=== PATIENT | female | born 1970 | race Caucasian/White ===

== ENCOUNTER → 2021-07-26 14:56 | Outpatient (BNVA) | payer OTHER, SELFPAY | PROVIDERS: PCP Internal Medicine; Visit Provider Hospitalist ==

== ENCOUNTER → 2021-09-14 08:23 | Outpatient (BNVA) | payer OTHER, SELFPAY | PROVIDERS: PCP Internal Medicine; Visit Provider Hospitalist | DX: J45.909 Unspecified asthma, uncomplicated (principal); R91.8 Other nonspecific abnormal finding of lung field ==

== ENCOUNTER → 2022-11-03 09:42 | Outpatient (BNVA) | payer OTHER, SELFPAY | PROVIDERS: PCP Internal Medicine; Visit Provider Hospitalist | DX: Z13.89 Encounter for screening for other disorder (principal) ==

== ENCOUNTER 2023-11-12 08:50 | Outpatient (REF) | payer OTHER, SELFPAY ==
[2023-11-12 10:25] VITALS: PULSE 82; RESP 14; O2SAT 98
--- NOTE | 2023-11-12 10:58 | PFT_ITS ---
Indication: Asthma Spirometry [FEV1 to FVC 76%; FEV1 3.07 L; FVC 4.03 L. no significant response to bronchodilators noted. Maximum voluntary ventilation 163% predicted] Lung Volumes [Total lung capacity 101% predicted] Diffusion Capacity [DLCO 115% predicted] Comparisons [None] Interpretation [No obstructive nor restrictive ventilatory defects identified. No significant response to bronchodilators noted. Normal maximum voluntary ventilation. Lung volumes and diffusing capacity also within normal limits. Clinical correlation warranted.] MTDD
== END 2023-11-12 08:51 | disposition home or self-care (01) ==
LOC: HO.RESP 08:50
PROVIDERS: PCP Internal Medicine; Visit Provider Hospitalist
DX: J45.50 Severe persistent asthma, uncomplicated (principal)
CPT/HCPCS: 94010; 94640; 94727; 94729

== ENCOUNTER 2023-11-12 09:59 | Outpatient (AMB) | payer OTHER, SELFPAY ==
[2023-11-12 10:29] VITALS: PULSE 82; O2SAT 99; BMI 23.3
--- NOTE | 2023-11-12 10:29 | A.OFFVIS_ITS ---
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 She states that for many years usually in the winter time she would develop a a bout of bronchitis with bronchospasms and wheezing. she would require a brief period of respiratory therapy. However the several months the patient has been developing worsening respiratory complaints with his shortness of breath in addition to chest tightness. She did follow-up with her primary care doctor who ordered pulmonary function studies and a chest x-ray. The patient also was placed on Symbicort which has helped decrease some of her respiratory complaints. The pars the chest x-ray I personally reviewed with the patient which was done in July 2021. demonstrating evidence of hyperinflation both with retrosternal air and also flattening of the diaphragms. We also did compare findings to an x-ray that she had back in 2018 which is very similar. In addition to that we did also review her pulmonary function studies. Her pre bronchodilator FEV1 to FVC was 71% and after bronchodilator it improved to 74%. Explained to her that she does not meet criteria for COPD based on the spirometry. But, it does demonstrate some degree of obstructive physiology. She does have some small airways disease it is likely that she has uncontrolled asthma. The patient has not had allergy testing. As far as exposures she denies any exposure to any farm work or mold. Denies any hobbies/work that have to do with any fumes or organic or inorganic dust. her significant other does work with painting however he is in a different shopping she is not exposed to the paint. She is a lifelong nonsmoker although she was exposed to secondhand smoke. 09/14/2021 the patient is here for a [facility] follow-up visit. The patient has been feeling better on the Trelegy inhaler. Not having to use her rescue inhaler more than twice a week. she had 1 bout of a upper respiratory illness. The patient did not require prednisone which is reassuring. We did review her laboratory results. Appears that she has significant allergies with elevated IgE level above 400. Significant seasonal allergies. Also mild allergy to mucor. She is also allergic to most grasses and trees. She has a lot of nature on her. Patient is also allergic to dust mites. We did talk about getting hyperlipidemia covers or foam mattress. The patient should also given a rugs. At this point the patient is doing better. I did recommend she follow up or get evaluated by Allergy in view of her significant allergies. She can also consider biologics in the future if specially her symptoms continue to be present on maximize respiratory therapy. Will focus on providing additional allergy therapy at this time with both leukotriene inhibitors and antihistamines. Will follow-up in 6 months. 04/04/2022 the patient is here for a pulmo nary follow-up visit. Overall she is doing very well. Continues on the Trelegy inhaler. Unfortunately, she has changed insurance companies and now is extremely expensive. Therefore, will go ahead and switch her to a generic combination inhaler, AirDuo. That should be a lot better harper was. I am not sure how she will do without the long-acting muscarinic antagonist. However, we can always add that to her regimen if ne eded. She does continue with allergy medicine. She stays active. She has not required any prednisone. She does use hearing he will err, albuterol, couple times a week. She continues to work regularly. Has not had any significant limitations. she does have significant allergies we spoke about before. I did give her copies of it. Patient may benefit from either allergy immunotherapy or biologic injections If her symptoms worsen or her asthma becomes uncontrolled. At this point I believe she is doing okay. 11/03/2022 the patient is here for a pulmonary follow-up visit. The patient continues to do well. She has been tolerating the AirDuo. It has been helping her and is much more cost effective. She also continues with Zyrtec and Singulair. the patient has not required her rescue inhaler. Therefore we can hold off from biologic therapies at this time. no recent imaging studies to review. The patient is to return in 1 years time with pulmonary function studies. 11/12/2023 the patient is here for a pulm onary follow-up visit. The patient overall is doing about the same. She still complains of dyspnea on exertion specially when she is exercising. She had been on AirDuo from many years. Although now she can not find it at the pharmacy. Therefore, switched over to [facility] that she has some samples and that was very affecting beneficial for her. However also significantly expensive for him to dollars a month. Therefore that has not financially feasible for her. She did find that Breo will be covered for her. Therefore I will go ahead and send a prescription for Breo. In the meantime the patient did undergo pulmonary function studies and we personally reviewed them. No evidence of any obstructive nor restrictive ventilatory defects. Diffusing capacity is within normal limits. Overall looks pretty normal. Explained to her that with asthma and may vary depending on the triggers. Back in August she did have an exacerbation due to a viral syndrome she did require prednisone and also a course of antibiotics at that point. The patient at this point will consider using her rescue inhaler 15 minutes before exercise to help her with potential exercise exacerbated asthma. The patient also can consider biologics. She does have elevations in her eosinophils and therefore may be a candidate for biologics if her symptoms worsen. [facility] Medical History (Updated 11/12/23 @ 20:43 by Satish Jerry MD) Hoarseness Cough Chronic rhinitis Asthma Social History Patient Tobacco Use Status: Never used Tobacco Review of Systems Const Denies night sweats ENT Denies change in voice, Denies lip swelling, Denies mouth pain, Reports nasal congestion, Reports nasal discharge and Denies tongue swelling Card Denies chest pain and Reports dyspnea on exertion Resp Reports cough, Reports dyspnea on exertion and Reports wheezing GI Denies abdominal pain Musc Denies no additional complaints Neuro Denies Neuro-related abnormal movements Psych Denies no additional complaints Sundeep/Lymph Denies easy bleeding and Denies lymphadenopathy Aller/Immun Denies lip swelling, Denies tongue swelling and Reports wheezing Physical Exam Vital Signs: Last Vital Signs Pulse 82 11/12/23 10:29 Pulse Ox 99 11/12/23 10:29 Oxygen Delivery Method Room Air 11/12/23 10:29 BMI result Body Mass Index 23.3 Const General: alert Neck Neck: Yes normal visual inspection, Yes full ROM and Yes no lymphadenopathy Chest Chest palpation & inspection: normal inspection of the chest Resp Effort & Inspection: normal respiratory effort Auscultation: no wheezes and diminished lung sounds Cardio Rate: regular rate Rhythm: regular rhythm Heart sounds: S1 normal heart sound present and S2 normal heart sound present GI Palpation (GI): Soft to palpation and nontender Auscultation: normal bowel sounds Skin General skin exam: rashes and/or lesions noted Assessment & Plan Assessment & Plan (1) Asthma: Code(s): J45.909 - Unspecified asthma, uncomplicated Qualifiers: Asthma complication type: uncomplicated Asthma persistence: persistent Asthma severity: moderate Qualified Code(s): J45.40 - Moderate persistent asthma, uncomplicated (2) Chronic rhinitis: Code(s): J31.0 - Chronic rhinitis (3) Cough: Code(s): R05.9 - Cough, unspecified Qualifiers: Cough type: chronic Qualified Code(s): R05.3 - Chronic cough Plan stop Airduo start Breo ABENA as needed Nasal rinsing antihistamines at night continue singular Consider Biologic therapy if symptoms worsen. Would benefit from an allergy referral with her significant allergies F/U 12 months Medications: New fluticasone furoate-vilanterol 200-25 mcg/dose (Breo Ellipta) 1 inh inhalation DAILY 90 days 3 ea 3RF J45.909 - Unspecified asthma, uncomplicated Coding Level of Care Code Est Pt Level 4 (81317) Diagnoses Moderate persistent asthma without complication J45.40 Asthma complication type: uncomplicated Asthma persistence: persistent Asthma severity: moderate Chronic rhinitis J31.0 Chronic cough R05.3 Cough type: chronic Time Spent (min) 17
== END 2023-11-12 11:12 | disposition home or self-care (01) ==
PROVIDERS: PCP Internal Medicine; Visit Provider Hospitalist
DX: J45.40 Moderate persistent asthma, uncomplicated (principal); J31.0 Chronic rhinitis; R05.3 Chronic cough
CPT/HCPCS: 94060; 94727; 94729; 99214

== ENCOUNTER 2025-05-05 08:24 | Outpatient (AMB) | payer OTHER, SELFPAY ==
--- NOTE | 2025-05-05 08:27 | A.OFFVIS_ITS ---
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 She states that for many years usually in the winter time she would develop a a bout of bronchitis with bronchospasms and wheezing. she would require a brief period of respiratory therapy. However the several months the patient has been developing worsening respiratory complaints with his shortness of breath in addition to chest tightness. She did follow-up with her primary care doctor who ordered pulmonary function studies and a chest x-ray. The patient also was placed on Symbicort which has helped decrease some of her respiratory complaints. The pars the chest x-ray I personally reviewed with the patient which was done in July 2021. demonstrating evidence of hyperinflation both with retrosternal air and also flattening of the diaphragms. We also did compare findings to an x-ray that she had back in 2018 which is very similar. In addition to that we did also review her pulmonary function studies. Her pre bronchodilator FEV1 to FVC was 71% and after bronchodilator it improved to 74%. Explained to her that she does not meet criteria for COPD based on the spirometry. But, it does demonstrate some degree of obstructive physiology. She does have some small airways disease it is likely that she has uncontrolled asthma. The patient has not had allergy testing. As far as exposures she denies any exposure to any farm work or mold. Denies any hobbies/work that have to do with any fumes or organic or inorganic dust. her significant other does work with painting however he is in a different shopping she is not exposed to the paint. She is a lifelong nonsmoker although she was exposed to secondhand smoke. 09/14/2021 the patient is here for a pulmonary follow-up visit. The patient has been feeling better on the Trelegy inhaler. Not having to use her rescue inhaler more than twice a week. she had 1 bout of a upper respiratory illness. The patient did not require prednisone which is reassuring. We did review her laboratory results. Appears that she has significant allergies with elevated IgE level above 400. Significant seasonal allergies. Also mild allergy to mucor. She is also allergic to most grasses and trees. She has a lot of nature on her. Patient is also allergic to dust mites. We did talk about getting hyperlipidemia covers or foam mattress. The patient should also given a rugs. At this point the patient is doing better. I did recommend she follow up or get evaluated by Allergy in view of her significant allergies. She can also consider biologics in the future if specially her symptoms continue to be present on maximize respiratory therapy. Will focus on providing additional allergy therapy at this time with both leukotriene inhibitors and antihistamines. Will follow-up in 6 months. 04/04/2022 the patient is here for a pulmonary follow-up visit. Overall she is doing very well. Continues on the Trelegy inhaler. Unfortunately, she has changed insurance companies and now is extremely expensive. Therefore, will go ahead and switch her to a generic combination inhaler, AirDuo. That should be a lot better harper was. I am not sure how she will do without the long-acting muscarinic antagonist. However, we can always add that to her regimen if nee ded. She does continue with allergy medicine. She stays active. She has not required any prednisone. She does use hearing he will err, albuterol, couple times a week. She continues to work regularly. Has not had any significant limitations. she does have significant allergies we spoke about before. I did give her copies of it. Patient may benefit from either allergy immunotherapy or biologic injections If her symptoms worsen or her asthma becomes uncontrolled. At this point I believe she is doing okay. 11/03/2022 the patient is here for a pulmonary follow-up visit. The patient c ontinues to do well. She has been tolerating the AirDuo. It has been helping her and is much more cost effective. She also continues with Zyrtec and Singulair. the patient has not required her rescue inhaler. Therefore we can hold off from biologic therapies at this time. no recent imaging studies to review. The patient is to return in 1 years time with pulmonary function studies. 11/12/2023 the patient is here for a pulmonary follow-up visit. The patient overall is doing about the same. She still complains of dyspnea on exertion specially when she is exercising. She had been on AirDuo from many years. Although now she can not find it at the pharmacy. Therefore, switched over to Trelegy that she has some samples and that was very affecting beneficial for her. However also significantly expensive for him to dollars a month. Therefore that has not financially feasible for her. She did find that Breo will be covered for her. Therefore I will go ahead and send a prescription for Breo. In the meantime the patient did undergo pulmonary function studies and we personally reviewed them. No evidence of any obstructive nor restrictive ventilatory defects. Diffusing capacity is within normal limits. Overall looks pretty normal. Explained to her that with asthma and may vary depending on the triggers. Back in August she did have an exacerbation due to a viral syndrome she did require prednisone and also a course of antibiotics at that point. The patient at this point will consider using her rescue inhaler 15 minutes before exercise to help her with potential exercise exacerbated asthma. The patient also can consider biologics. She does have elevations in her eosinophils and therefore may be a candidate for biologics if her symptoms worsen. 05/05/2025 the patient is here for a pulmonary follow-up visit. She had been having hard time with the breathing. She has been coughing more chest tightness since the fall. Moderate severity. Seems to be getting worse now after getting a raspy voice and more chest congestion and wheezing. The patient does not have a nebulizer. She has been using her rescue inhaler. As far as inhalers she had a reaction to Breztri in addition to that she had been on AirDuo without any significant response. Trelegy seems to be okay for her she seemed to be tolerating it okay although expensive. The powder sometimes bothers her. Will go back to HFA with Symbicort hopefully this works better. In the meantime she continues to have significant eosinophilia. 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 Right now she has significant wheezing she will need additional prednisone and also started on a Z-Zoltan. Once she is better she will get blood work to assess her IgE levels and eosinophils to assess for biologic therapies. Patient follow-up in 3-4 months. She will call if she is no better for further recommendations. [facility] Medical History (Updated 05/05/25 @ 21:30 by Satish Jerry MD) Hoarseness Cough Chronic rhinitis Asthma Social History Patient Tobacco Use Status: Never used Tobacco Review of Systems Const Denies night sweats ENT Denies change in voice, Denies lip swelling, Denies mouth pain, Reports nasal congestion, Reports nasal discharge and Denies tongue swelling Card Denies chest pain and Reports dyspnea on exertion Resp Reports chest congestion, Reports cough, Reports dyspnea on exertion and Reports wheezing GI Denies abdominal pain Musc Denies no additional complaints Neuro Denies Neuro-related abnormal movements Psych Denies no additional complaints Sundeep/Lymph Denies easy bleeding and Denies lymphadenopathy Aller/Immun Denies lip swelling, Denies tongue swelling and Reports wheezing Physical Exam Vital Signs: Last Vital Signs Pulse 82 05/05/25 08:28 BP 110/58 L 05/05/25 08:28 Pulse Ox 100 05/05/25 08:28 Oxygen Delivery Method Room Air 05/05/25 08:28 BMI result Body Mass Index 23.7 Const General: alert Neck Neck: Yes normal visual inspection, Yes full ROM and Yes no lymphadenopathy Chest Chest palpation & inspection: normal inspection of the chest Resp Effort & Inspection: normal respiratory effort Auscultation: rhonchi, wheezes and diminished lung sounds Cardio Rate: regular rate Rhythm: regular rhythm Heart sounds: S1 normal heart sound present and S2 normal heart sound present GI Palpation (GI): Soft to palpation and nontender Auscultation: normal bowel sounds Skin General skin exam: rashes and/or lesions noted Office Procedures Nebulizer Treatment Nebulizer Treatment [id number] RX initial, or Nebulizer Subsequent Treatment Office Meds albuterol sulfate 2.5 mg/3 mL (0.083 %) solution for nebulization Performing Provider: Satish Jerry MD Performing Location: [facility] Administered by: Agueda Arreguin LPN on 05/05/25 11:19 Dose Route Admin Location Dispensed Lot Number Expiration Date NDC Fish Cleaner Machine Tender 2.5 mg inhalation 3 mL [id number] 10/31/25 4416-6846-21 MYLAN Assessment & Plan Assessment & Plan (1) Asthma: Code(s): J45.909 - Unspecified asthma, uncomplicated Category: Medical Qualifiers: Asthma complication type: with acute exacerbation Asthma persistence: persistent Asthma severity: moderate Qualified Code(s): J45.41 - Moderate persistent asthma with (acute) exacerbation (2) Chronic rhinitis: Code(s): J31.0 - Chronic rhinitis Category: Medical (3) Cough: Code(s): R05.9 - Cough, unspecified Category: Medical Qualifiers: Cough type: chronic Qualified Code(s): R05.3 - Chronic cough Plan stop Airduo start symbicort ABENA as needed start Medrol pk start Azithromycin Bloodwork, ?Dupixent versus Fasenra Nasal rinsing antihistamines at night continue singular F/U 3-4 months Orders: Orders Basic Metabolic Panel Today J45.40 - Moderate persistent asthma, uncomplicated Erythrocyte Sedimentation Rate Today J45.40 - Moderate persistent asthma, uncomplicated Complete Blood Count Auto Diff Today J45.40 - Moderate persistent asthma, uncomplicated Immunoglobulin E Today J45.40 - Moderate persistent asthma, uncomplicated AMB Nebulizer Treatment Today J45.40 - Moderate persistent asthma, uncomplicated Medications: New azithromycin 500 mg PO DAILY 5 tabs 0RF 5 days methylprednisolone (Medrol (Zoltan)) PO PER PKG DIR 21 ea 0RF 6 days budesonide-formoterol 160-4.5 mcg/actuation (Symbicort) 2 puffs inhalation BID 10.2 grams 11RF 30 days J44.89 - Other specified chronic obstructive pulmonary disease Coding Level of Care Code Est Pt Level 4 (71298) Complex EM visit Add On G2211 Diagnoses Moderate persistent asthma with acute exacerbation J45.41 Asthma complication type: with acute exacerbation Asthma persistence: persistent Asthma severity: moderate Chronic rhinitis J31.0 Chronic cough R05.3 Cough type: chronic CPT Codes Nebulizer Treatment - Nebulizer Treatment, initial or subsequent: [id number]- Nebulizer/MDI RX initial, or Nebulizer Subsequent Treatment ([id number]) Time Spent (min) 18
[2025-05-05 08:28] VITALS: BP 110/58; PULSE 82; O2SAT 100; BMI 23.7
--- OUTSIDE RECORDS SUMMARY | 2025-05-05 08:31 | XMS_ITS | Encounter Summary ---
Author Organization [facility] Address [address] [place] [phone] Phone Care Team Providers Care Breastfeeding Educator Name Role Phone Logan Walker MD Primary Care Provide r Yessy Power MD Unavailable [phone] Encounter Details Date Type Department Care Team (Late st Contact Info) Description 10/04/2021 Ancillary Orders Pain Management Services [address] [place] [address] Keith Amin MD [address] [place] [address] [email or web address] Pain Social History Tobacco Use Types Packs/Day Years Used Date Smoking Tobacco: Never Smokeless Tobacco: Never Alcohol Use Standard Drinks/Week Comments Yes 0 (1 standard drink = 0.6 oz pur e alcohol) Comments Unknown Sex and Gender Information Value Date Recorded Sex Assigned at Female 09/21/2020 11:05 AM EST Legal Sex Female 10:54 AM EST Gender Identity Female 09/21/2020 11:05 AM EST Sexual Orientation Straight 09/21/2020 11 :05 AM EST documented as of this encounter Plan of Treatment Not on file documented as of this encounter Results * [place] [facility] (10/05/2021 10:35 AM EST) Narrative [facility] IMG INTERFACES - 10/05/2021 10:36 AM EST Fluoroscopy was provided during this procedure. us Keith Amin MD IMG [place] EXAMS Final Result [facility] IMG INTERFACES documented in this encounter Visit Diagnoses Diagnosis Pain Generalized pain Pain Generalized pain documented in this encounter Care Teams Breastfeeding Educator Relationship Specialty Start Date End Date Logan Walker MD [address] [place] [address] PCP - General Internal Medicine 09/21/20 Yessy Power MD [address] [place] [address] [email or web address] Physical Medicine and Rehabilitation 10/13/20 documented as of this encounter Additional Source Comments The information contained in this document represents components of the legal health record. It is not the complete legal health record.[facility]
== END 2025-05-05 09:09 | disposition home or self-care (01) ==
LOC: HO.HPS 08:24
PROVIDERS: PCP Internal Medicine; Visit Provider Hospitalist
DX: J45.41 Moderate persistent asthma with (acute) exacerbation (principal); J31.0 Chronic rhinitis; R05.3 Chronic cough; J45.40 Moderate persistent asthma, uncomplicated
CPT/HCPCS: 99214; G2211

== ENCOUNTER → 2025-05-05 08:24 | Outpatient (BNVA) | payer OTHER, SELFPAY | PROVIDERS: PCP Internal Medicine; Visit Provider Hospitalist | DX: R06.02 Shortness of breath (principal); R05.3 Chronic cough | CPT/HCPCS: 94640 ==

== ENCOUNTER 2025-08-21 08:52 | Outpatient (AMB) | payer OTHER, SELFPAY ==
[2025-08-21 08:55] VITALS: BP 110/62; PULSE 69; O2SAT 100; BMI 24.9
--- NOTE | 2025-08-21 08:55 | MHC.OFFVIS ---
Vital Signs 08/21/25 08:55 Height 5 ft 5 in Weight 149 lb 14.629 oz BMI 24.9 BP 110/62 Blood Pressure Location Lt brachial Position Sitting Pulse 69 Pulse Source Pulse Oximeter Pulse Oximetry (%) 100 Oxygen Delivery Method Room Air Intake Visit Reasons: Asthma Roller Checker Required: No Accompanied by: Self / Same As Patient Allergies fluconazole (From Diflucan) Allergy (Severe, Verified 08/21/25 08:57) Hives budesonide (From Breztri Aerosphere) Adverse Reaction (Intermediate, Verified 08/21/25 08:57) Chest Pain formoterol (From Breztri Aerosphere) Adverse Reaction (Intermediate, Verified 08/21/25 08:57) Chest Pain glycopyrrolate (From Zero9ztri AerosSilverLine Global) Adverse Reaction (Intermediate, Verified 08/21/25 08:57) Chest Pain HPI Comments Details: The patient is a 54-year-old woman presenting with worsening respiratory status. She states that for many years usually in the winter time she would develop a a bout of bronchitis with bronchospasms and wheezing. she would require a brief period of respiratory therapy. However the several months the patient has been developing worsening respiratory complaints with his shortness of breath in addition to chest tightness. She did follow-up with her primary care doctor who ordered pulmonary function studies and a chest x-ray. The patient also was placed on Symbicort which has helped decrease some of her respiratory complaints. The pars the chest x-ray I personally reviewed with the patient which was done in July 2021. demonstrating evidence of hyperinflation both with retrosternal air and also flattening of the diaphragms. We also did compare findings to an x-ray that she had back in 2018 which is very similar. In addition to that we did also review her pulmonary function studies. Her pre bronchodilator FEV1 to FVC was 71% and after bronchodilator it improved to 74%. Explained to her that she does not meet criteria for COPD based on the spirometry. But, it does demonstrate some degree of obstructive physiology. She does have some small airways disease it is likely that she has uncontrolled asthma. The patient has not had allergy testing. As far as exposures she denies any exposure to any farm work or mold. Denies any hobbies/work that have to do with any fumes or organic or inorganic dust. her significant other does work with painting however he is in a different shopping she is not exposed to the paint. She is a lifelong nonsmoker although she was exposed to secondhand smoke. 09/14/2021 the patient is here for a pulmonary follow-up visit. The patient has been feeling better on the Trelegy inhaler. Not having to use her rescue inhaler more than twice a week. she had 1 bout of a upper respiratory illness. The patient did not require prednisone which is reassuring. We did review her laboratory results. Appears that she has significant allergies with elevated IgE level above 400. Significant seasonal allergies. Also mild allergy to mucor. She is also allergic to most grasses and trees. She has a lot of nature on her. Patient is also allergic to dust mites. We did talk about getting hyperlipidemia covers or foam mattress. The patient should also given a rugs. At this point the patient is doing better. I did recommend she follow up or get evaluated by Allergy in view of her significant allergies. She can also consider biologics in the future if specially her symptoms continue to be present on maximize respiratory therapy. Will focus on providing additional allergy therapy at this time with both leukotriene inhibitors and antihistamines. Will follow-up in 6 months. 04/04/2022 the patient is here for a pulmonary follow-up visit. Overall she is doing very well. Continues on the Trelegy inhaler. Unfortunately, she has changed insurance companies and now is extremely expensive. Therefore, will go ahead and switch her to a generic combination inhaler, AirDuo. That should be a lot better harper was. I am not sure how she will do without the long-acting muscarinic antagonist. However, we can always add that to her regimen if needed. She does continue with allergy medicine. She stays active. She has not required any prednisone. She does use hearing he will err, albuterol, couple times a week. She continues to work regularly. Has not had any significant limitations. she does have significant allergies we spoke about before. I did give her copies of it. Patient may benefit from either allergy immunotherapy or biologic injections If her symptoms worsen or her asthma becomes uncontrolled. At this point I believe she is doing okay. 11/03/2022 the patient is here for a pulmonary follow-up visit. The patient continues to do well. She has been tolerating the AirDuo. It has been helping her and is much more cost effective. She also continues with Zyrtec and Singulair. the patient has not required her rescue inhaler. Therefore we can hold off from biologic therapies at this time. no recent imaging studies to review. The patient is to return in 1 years time with pulmonary function studies. 11/12/2023 the patient is here for a pulmonary follow-up visit. The patient overall is doing about the same. She still complains of dyspnea on exertion specially when she is exercising. She had been on AirDuo from many years. Although now she can not find it at the pharmacy. Therefore, switched over to Trele that she has some samples and that was very affecting beneficial for her. However also significantly expensive for him to dollars a month. Therefore that has not financially feasible for her. She did find that Breo will be covered for her. Therefore I will go ahead and send a prescription for Breo. In the meantime the patient did undergo pulmonary function studies and we personally reviewed them. No evidence of any obstructive nor restrictive ventilatory defects. Diffusing capacity is within normal limits. Overall looks pretty normal. Explained to her that with asthma and may vary depending on the triggers. Back in August she did have an exacerbation due to a viral syndrome she did require prednisone and also a course of antibiotics at that point. The patient at this point will consider using her rescue inhaler 15 minutes before exercise to help her with potential exercise exacerbated asthma. The patient also can consider biologics. She does have elevations in her eosinophils and therefore may be a candidate for biologics if her symptoms worsen. 05/05/2025 the patient is here for a pulmonary follow-up visit. She had been having hard time with the breathing. She has been coughing more chest tightness since the fall. Moderate severity. Seems to be getting worse now after getting a raspy voice and more chest congestion and wheezing. The patient does not have a nebulizer. She has been using her rescue inhaler. As far as inhalers she had a reaction to Breztri in addition to that she had been on AirDuo without any significant response. Trelegy seems to be okay for her she seemed to be tolerating it okay although expensive. The powder sometimes bothers her. Will go back to HFA with Symbicort hopefully this works better. In the meantime she continues to have significant eosinophilia. 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 Right now she has significant wheezing she will need additional prednisone and also started on a Z-Zoltan. Once she is better she will get blood work to assess her IgE levels and eosinophils to assess for biologic therapies. Patient follow-up in 3-4 months. She will call if she is no better for further recommendations. 08/21/2025 the patient is here for pulmonary follow-up visit. Since we last spoke she underwent surgery and was complicated by a bladder injury. She did have issues with extravasation of urine into her abdominal cavity. No evidence of any year old thorax. She did have a CT scan of the abdomen which I reviewed. Lung bases appear to be clear with some atelectasis. In the meantime the patient developed COVID. She did take a Z-Zoltan and she also takes some prednisone for that. She did recover. She is doing better although she is developing some upper respiratory symptoms at this time. She needs to get a flu shot. She has not done so. She seems to be doing well with the Symbicort and she also has responded well to the nebulizer. She did undergo blood work and will go ahead and wait for the blood work to be available for us. We will check to see if she is a good candidate for biologic therapy. Otherwise the patient is without any other concerns. She will follow-up in 6-8 months if any issues arise she can always call for further recommendations. Once I get the blood work I will call her to see if we should move forward with the biologic therapy. PENDING SALE TO [facility] Medical History (Updated 05/05/25 @ 21:30 by Satish Jerry MD) Hoarseness Cough Chronic rhinitis Asthma Social History Patient Tobacco Use Status: Never used Tobacco Review of Systems Const Denies night sweats ENT Denies change in voice, Denies lip swelling, Denies mouth pain, Reports nasal congestion, Reports nasal discharge and Denies tongue swelling Card Denies chest pain and Reports dyspnea on exertion Resp Denies chest congestion, Reports cough, Reports dyspnea on exertion and Reports wheezing GI Denies abdominal pain Musc Denies no additional complaints Neuro Denies Neuro-related abnormal movements Psych Denies no additional complaints Sundeep/Lymph Denies easy bleeding and Denies lymphadenopathy Aller/Immun Denies lip swelling, Denies tongue swelling and Reports wheezing Physical Exam Vital Signs: Last Vital Signs Pulse 69 08/21/25 08:55 BP 110/62 08/21/25 08:55 Pulse Ox 100 08/21/25 08:55 Oxygen Delivery Method Room Air 08/21/25 08:55 BMI result Body Mass Index 24.9 Const General: alert Neck Neck: Yes normal visual inspection, Yes full ROM and Yes no lymphadenopathy Chest Chest palpation & inspection: normal inspection of the chest Resp Effort & Inspection: normal respiratory effort Auscultation: no rhonchi, no wheezes and diminished lung sounds Cardio Rate: regular rate Rhythm: regular rhythm Heart sounds: S1 normal heart sound present and S2 normal heart sound present GI Palpation (GI): Soft to palpation and nontender Auscultation: normal bowel sounds Skin General skin exam: rashes and/or lesions noted Assessment & Plan Assessment & Plan (1) Asthma: Code(s): J45.909 - Unspecified asthma, uncomplicated Category: Medical Qualifiers: Asthma complication type: with acute exacerbation Asthma persistence: persistent Asthma severity: moderate Qualified Code(s): J45.41 - Moderate persistent asthma with (acute) exacerbation (2) Chronic rhinitis: Code(s): J31.0 - Chronic rhinitis Category: Medical (3) Cough: Code(s): R05.9 - Cough, unspecified Category: Medical Qualifiers: Cough type: chronic Qualified Code(s): R05.3 - Chronic cough Plan symbicort BID ABENA as needed Bloodwork pending, ?Biologics Nasal rinsing antihistamines at night continue singular F/U 8-12 months Coding Level of Care Code Est Pt Level 4 (92425) Diagnoses Moderate persistent asthma with acute exacerbation J45.41 Asthma complication type: with acute exacerbation Asthma persistence: persistent Asthma severity: moderate Chronic rhinitis J31.0 Chronic cough R05.3 Cough type: chronic Time Spent (min) 16
--- OUTSIDE RECORDS SUMMARY | 2025-08-21 08:59 | XMS_ITS | Encounter Summary ---
Author Organization [facility] Address [address] [place] [address] Phone Care Team Providers Care Package Yarns Drying Machine Operator Name Role Phone Logan Walker MD Primary Care Provide r Yessy Power MD Unavailable [phone] Encounter Details Date Type Department Care Team (Late st Contact Info) Description 10/04/2021 Ancillary Orders Pain Management Services [address] [place] [address] Keith Amin MD [address] [place] [address] [email or web address] Pain Social History Tobacco Use [...] Pain Management (10/05/2021 10:35 AM EST) Narrative [facility] IMG INTERFACES - 10/05/2021 10:36 AM EST Fluoroscopy was provided during this procedure. us Keith Amin MD IMG [place] EXAMS Final Result [facility] IMG INTERFACES documented in this encounter Visit Diagnoses Diagnosis Pain Generalized pain Pain Generalized pain documented in this encounter Care Teams Package Yarns Drying Machine Operator Relationship Specialty Start Date End Date Logan Walker MD [address] [place] [address] PCP - General Internal Medicine 09/21/20 Yessy Power MD [address] [place] [address] [email or web address] Physical Medicine and Rehabilitation 10/13/20 documented as of this encounter Additional Source Comments The information contained in this document represents components of the legal health record. It is not the complete legal health record.[facility]
--- OUTSIDE RECORDS SUMMARY | 2025-08-21 09:00 | XMS_ITS | Clinical Summary ---
Author Organization [facility] Address [address] [address] Phone Care Team Providers Care Security Delivery Specialist Name Role Phone Logan Walker MD Primary Care Provide r Yessy Power MD Unavailable Allergies Active Allergy Reactions Criticality Noted Date Comments Fluconazole 10/11/2020 Medications acetaminophen (TYLENOL) 500 MG tablet Take 100 mg by mouth every 6 (six) hours as needed for pain (specific location in comments). Active ibuprofen (ADVIL,MOTRIN) 600 MG tablet Take 600 mg by mouth every 6 (six) hours as needed for pain (specific location in comments). Active famotidine (PEPCID) 20 MG tablet Take 20 mg by mouth 2 (two) times a day. Active cholecalciferol (VITAMIN D3) 2,000 unit capsule Take 1,000 Units by mouth daily. Active ascorbic acid, vitamin C, (VITAMIN C) 500 MG tablet Take 1,000 mg by mouth daily. Active b complex vitamins capsule Take 1 capsule by mouth daily. Active docosahexaenoic acid/epa (FISH OIL ORAL) Take by mouth. Active MELATONIN ORAL Take by mouth. Active cetirizine (ZYRTEC) 10 MG tablet Take 10 mg by mouth daily. Active montelukast (SINGULAIR) 10 mg tablet Take 10 mg by mouth nightly at bedtime. Active albuterol 90 mcg/actuation inhaler Inhale 2 puffs into the lungs every 6 (six) hours as needed for wheezing. q4 hours prn Active tiZANidine (ZANAFLEX) 2 MG tabletIndications: Lumbosacral radiculopathy at L5 Take 1 tablet (2 mg total) by mouth every 8 (eight) hours as needed. Driving precautions. 90 tablet 1 2 Active tiZANidine (ZANAFLEX) 2 MG capsule Take 1 capsule (2 mg total) by mouth 3 (three) times a day as needed (spasm). 60 capsule 1 2 Active amitriptyline (ELAVIL) 10 MG tabletIndications: Lumbosacral radiculopathy at L5 Take 1 tablet (10 mg total) by mouth nightly at bedtime. 30 tablet 2 3 Active gabapentin (NEURONTIN) 300 MG capsuleIndications :Right lumbar radiculopathy Take 1-2 capsules (300-600 mg total) by mouth 3 (three) times a day. 60 capsule 1 3 Active Active Problems No known active problems Family History Medical History Relation Comments Cancer Father Multiple sclerosis Father Stroke Father Relation Status Comments Brother Alive Daughter Alive Father Mother Alive Sister Alive Social History Tobacco Use Types Packs/Day Years Used Date Smoking Tobacco: Never Smokeless Tobacco: Never Alcohol Use Standard Drinks/Week Comments Yes 0 (1 standard drink = 0.6 oz pur e alcohol) Education Answer Date Recorded Are you interested in more education? Not on srinivasan e 01/26/2023 Are you concerned about learning? Not on file 01/26/2023 No 01/26/2023 No 01/26/2023 Digital Access Answer Date Recorded No 02/27/2023 No 02/27/2023 Reliable internet access at home? Not on file 02/27/2023 Device with a working camera? Not on file Comments Unknown Sex and Gender Information Value Date Recorded Sex Assigned at Female 09/21/2020 11:05 AM EST Legal Sex Female 10:54 AM EST Gender Identity Female 09/21/2020 11:05 AM EST Sexual Orientation Straight 09/21/2020 11 :05 AM EST Last Filed Vital Signs Vital Sign Reading Time Taken Comments Blood Pressure 146/85 11/09/2022 4:20 PM EST Pulse 76 11/09/2022 4:20 PM EST Temperature - - Respiratory Rate 18 11/09/2022 4:20 PM EST Oxygen Saturation 100% 11/09/2022 4:20 PM EST Inhaled Oxygen Concentration - - Weight - - Height - - Body Mass Index - - Plan of Treatment Health Maintenance Due Date Last Done Comments Adult Td,Tdap Booster 1969 LIPID PANEL 1969 DEPRESSION SCREENING 1981 HEPATITIS C SCREENING 1987 HIV ONE-TIME SCREENING (18-65 YEARS) 1987 PAP SMEAR 1990 MAMMOGRAM 2009 COLOGUARD 2014 COLONOSCOPY 2014 COLORECTAL CANCER SCREENING 2014 FIT TEST 2014 FOBT 2014 SIGMOIDOSCOPY 2014 VIRTUAL COLONOSCOPY 2014 PNEUMOCOCCAL VACCINES (50+ years) (1 of 1 - PCV) 2019 ZOSTER VACCINES (1 of 2) 2019 INFLUENZA VACCINE (#1) 2025 09/12/2022, 2020 COVID-19 VACCINE (2024- season) 2025 09/12/2022, 07/12/2021, 10/20/2020, Additional history exists RSV VACCINE (1 - 1-dose 75+ series) 2044 SMOKING STATUS SCREENING (Once After 26 Yrs) Completed 01/24/2021 HEPATITIS A VACCINES Aged Out No long er eligible based on patient's age to complete this topic HIB VACCINES Aged Out No longer eligi ble based on patient's age to complete this topic MENINGOCOCCAL VACCINES (ACWY) Aged Out No longer eligible based on patient's age to complete this topic MENINGOCOCCAL VACCINES (B) Aged Out N o longer eligible based on patient's age to complete this topic Medical Devices Not on file Insurance [facility] Care Teams Security Delivery Specialist Relationship Specialty Start Date End Date Logan Walker MD [address] [place] [phone] PCP - General Internal Medicine 09/21/20 Yessy Power MD [address] [place] [id number] [email or web address] Physical Medicine and Rehabilitation 10/13/20 Additional Source Comments The information contained in this document represents components of the legal health record. It is not the complete legal health record.[facility]
--- OUTSIDE RECORDS SUMMARY | 2025-08-21 09:00 | XMS_ITS | Encounter Summary ---
Author Organization [facility] Address [address] [place] [phone] Phone Care Team Providers Care Fretted String Instrument Repairer Name Role Phone Logan Walker MD Primary Care Provide r Yessy Power MD Unavailable [phone] Encounter Details Date Type Department Care Team (Late st Contact Info) Description 12/07/2020 Ancillary Orders Pain Management Services [address] [place] [address] Keith Amin MD [address] [place] [address] [email or web address] Pain Social History Tobacco Use Types Packs/Day [...] this encounter Results * [place] Pain Management (12/08/2020 9:23 AM EST) Narrative [facility] IMG INTERFACES - 12/08/2020 9:24 AM EST Fluoroscopy was provided during this procedure. us Keith Amin MD IMG [place] EXAMS Final Result [facility] IMG INTERFACES documented in this encounter Visit Diagnoses Diagnosis Pain Generalized pain Pain Generalized pain documented in this encounter Care Teams Fretted String Instrument Repairer Relationship Specialty Start Date End Date Logan Walker MD [address] [place] [address] PCP - General Internal Medicine 09/21/20 Yessy Power MD [address] [place] [address] [email or web address] Physical Medicine and Rehabilitation 10/13/20 documented as of this encounter Additional Source Comments The information contained in this document represents components of the legal health record. It is not the complete legal health record.[facility]
== END 2025-08-21 09:21 | disposition home or self-care (01) ==
LOC: HO.HPS 08:53
PROVIDERS: PCP Internal Medicine; Visit Provider Hospitalist
DX: J45.41 Moderate persistent asthma with (acute) exacerbation (principal); J31.0 Chronic rhinitis; R05.3 Chronic cough
CPT/HCPCS: 99214